=== PATIENT | female | born 1995 | race Two or more races ===

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

== ENCOUNTER → 2017-02-23 | Outpatient (REF) | payer OTHER ==
[2017-02-23 22:25] LABS: CHLAMYDIA DNA AMPLIFICATION POSITIVE (NEGATIVE); GC DNA AMPLIFICATION NEGATIVE (NEGATIVE)
== END ==
LOC: M LAB REF 17:18
DX: N39.0 Urinary tract infection, site not specified (principal)

== ENCOUNTER → 2017-04-19 | Outpatient (REF) | payer OTHER | LOC: M LAB REF 19:19 | DX: A08.4 Viral intestinal infection, unspecified (principal) ==

== ENCOUNTER → 2017-05-09 | Outpatient (CLI) | payer OTHER ==
[2017-05-11 11:46] LABS: HIV 1&2 SCREEN CENTAUR NEGATIVE (NEGATIVE)
== END ==
LOC: M WUC 16:31
DX: Z72.51 High risk heterosexual behavior (principal)
CPT/HCPCS: 36415

== ENCOUNTER 2017-07-12 12:45 | Emergency (ER) | payer OTHER ==
[2017-07-12 14:37] LABS: HEMATOCRIT 41.4 % (36.0-47.0); HEMOGLOBIN 13.8 g/dl (12.0-15.5); MEAN CORPUSCULAR HEMOGLOBIN 29.4 pg (27.0-33.0); MEAN CORPUSCULAR HGB CONC 33.3 g/dl (32.0-36.5); MEAN CORPUSCULAR VOLUME 88.3 fl (80.0-96.0); PLATELET COUNT, AUTOMATED 230 10^3/uL (150-450); RED BLOOD COUNT 4.69 10^6/uL (4.00-5.40); RED CELL DISTRIBUTION WIDTH 12.2 % (11.5-14.5); WHITE BLOOD COUNT 10.9 10^3/uL (4.0-10.0)
[2017-07-12 14:52] LABS: AMPHETAMINES LEVEL URINE NEGATIVE (NEGATIVE); BARBITURATES URINE NEGATIVE (NEGATIVE); BENZODIAZEPINES URINE NEGATIVE (NEGATIVE); CANNABINOIDS URINE POSITIVE (NEGATIVE); COCAINE METABOLITE URINE NEGATIVE (NEGATIVE); CONTROL LINE HCG INT CTR LINE PRESENT; HCG, SERUM QUALITATIVE NEGATIVE (NEGATIVE); METHADONE URINE NEGATIVE (NEGATIVE); OPIATES URINE NEGATIVE (NEGATIVE); PHENCYCLIDINE URINE NEGATIVE (NEGATIVE)
[2017-07-12 15:07] LABS: ALBUMIN 3.8 GM/DL (3.2-5.2); ALBUMIN/GLOBULIN RATIO 0.97 (1.00-1.93); ALKALINE PHOSPHATASE 66 U/L (45-117); ALT/SGPT 18 U/L (12-78); ANION GAP 4 MEQ/L (8-16); AST/SGOT 12 U/L (7-37); BILIRUBIN,DIRECT < 0.1 MG/DL (0.0-0.2); BILIRUBIN,TOTAL 0.3 MG/DL (0.2-1.0); BLOOD UREA NITROGEN 11 MG/DL (7-18); CALCIUM LEVEL 8.8 MG/DL (8.5-10.1); CARBON DIOXIDE LEVEL 29 MEQ/L (21-32); CHLORIDE LEVEL 107 MEQ/L (98-107); CREATININE FOR GFR 0.65 MG/DL (0.55-1.30); GLUCOSE, FASTING 82 MG/DL (70-100); POTASSIUM SERUM 3.9 MEQ/L (3.5-5.1); SALICYLATE LEVEL < 1.7 MG/DL (5.0-30.0); SODIUM LEVEL 140 MEQ/L (136-145); TOTAL PROTEIN 7.7 GM/DL (6.4-8.2)
[2017-07-12 15:09] LABS: ACETAMINOPHEN LEVEL < 2.0 UG/ML (10.0-30.0); ETHYL ALCOHOL (ETHANOL) < 0.003 % (0.000-0.010)
== END 2017-07-12 17:14 | disposition home or self-care (01) ==
LOC: M ED 12:45
DX: F31.9 Bipolar disorder, unspecified (principal); F41.9 Anxiety disorder, unspecified
CPT/HCPCS: 80320

== ENCOUNTER 2017-07-13 12:08 | Emergency (ER) | payer OTHER, MEDICAID | END 2017-07-13 13:19 | disposition home or self-care (01) | LOC: M ED 12:08 | DX: F31.9 Bipolar disorder, unspecified (principal); F33.1 Major depressive disorder, recurrent, moderate; F12.10 Cannabis abuse, uncomplicated; F43.10 Post-traumatic stress disorder, unspecified | CPT/HCPCS: 99283 ==

== ENCOUNTER 2017-08-05 17:48 | Emergency (ER) | payer OTHER ==
[2017-08-05 21:38] LABS: HEMATOCRIT 36.1 % (36.0-47.0); HEMOGLOBIN 12.4 g/dl (12.0-15.5); MEAN CORPUSCULAR HGB CONC 34.3 g/dl (32.0-36.5); MEAN CORPUSCULAR VOLUME 87.4 fl (80.0-96.0); PLATELET COUNT, AUTOMATED 193 10^3/uL (150-450); RED BLOOD COUNT 4.13 10^6/uL (4.00-5.40); RED CELL DISTRIBUTION WIDTH 12.1 % (11.5-14.5); WHITE BLOOD COUNT 13.9 10^3/uL (4.0-10.0)
[2017-08-05 21:40] LABS: ADD MANUAL DIFFER YES; DIFF SLIDE NUMBER 161; POSITIVE DIFF POS FLAG
[2017-08-05 21:46] LABS: AMORPHOUS SEDIMENT RFX SMALL (NEGATIVE); KETONE, URINE AUTO RFX NEGATIVE (NEGATIVE); MUCUS, URINE RFX MODERATE (NEGATIVE); NITRITE, URINE AUTO RFX NEGATIVE (NEGATIVE); RBC, URINE AUTO RFX 0 /HPF (0-3); SPECIFIC GRAVITY UR AUTO RFX 1.025 (1.002-1.035); SQUAM EPITHELIAL CELL UR AURFX 35 /HPF (0-6)
[2017-08-05 21:47] LABS: LEUKOCYTE ESTERASE UR AUTO RFX 2+ (NEGATIVE); WBC, URINE AUTO RFX 146 /HPF (0-3)
[2017-08-05 21:51] LABS: CONTROL LINE HCG INT CTR LINE PRESENT; HCG, SERUM QUALITATIVE NEGATIVE (NEGATIVE)
[2017-08-05 22:02] LABS: ALBUMIN 3.3 GM/DL (3.2-5.2); ALKALINE PHOSPHATASE 66 U/L (45-117); ALT/SGPT 16 U/L (12-78); ANION GAP 8 MEQ/L (8-16); AST/SGOT 11 U/L (7-37); BILIRUBIN,DIRECT < 0.1 MG/DL (0.0-0.2); BILIRUBIN,TOTAL 0.2 MG/DL (0.2-1.0); BLOOD UREA NITROGEN 17 MG/DL (7-18); CALCIUM LEVEL 8.5 MG/DL (8.5-10.1); CARBON DIOXIDE LEVEL 28 MEQ/L (21-32); CHLORIDE LEVEL 106 MEQ/L (98-107); CREATININE FOR GFR 0.65 MG/DL (0.55-1.30); GLUCOSE, FASTING 77 MG/DL (70-100); LIPASE 74 U/L (73-393); POTASSIUM SERUM 3.5 MEQ/L (3.5-5.1); SODIUM LEVEL 142 MEQ/L (136-145); TOTAL PROTEIN 6.6 GM/DL (6.4-8.2)
[2017-08-05 22:13] LABS: ATYPICAL LYMPH 2 % (0-5); EOSINOPHILS 2 % (0-5); LYMPHOCYTES 40 % (16-52); MONOCYTES 2 % (0-8); MYELOCYTES 1 % (0-0); NEUTROPHILS 53 % (35-75); PLATELET ESTIMATE NORMAL (NORMAL)
[2017-08-05] MEDS: ONDANSETRON 4 MG ORAL DISINTEGRATING TAB (Q0162 PER 1MG) PO (22:32)
[2017-08-05] MEDS: metroNIDAZOLE (FLAGYL) 500 MG TAB PO (23:23)
[2017-08-05 23:48] LABS: CHLAMYDIA DNA AMPLIFICATION POSITIVE (NEGATIVE); GC DNA AMPLIFICATION NEGATIVE (NEGATIVE)
[2017-08-06 09:37] LABS: HEPATITIS C VIRUS ABY INDEX 0.1 INDEX (<0.8)
== END 2017-08-05 23:25 | disposition home or self-care (01) ==
LOC: M ED 17:48
DX: N76.0 Acute vaginitis (principal); F31.0 Bipolar disorder, current episode hypomanic
CPT/HCPCS: Q0162

== ENCOUNTER 2017-08-23 10:59 | Inpatient (IN) | payer OTHER ==
[2017-08-23 11:43] LABS: HEMATOCRIT 44.1 % (36.0-47.0); HEMOGLOBIN 14.6 g/dl (12.0-15.5); MEAN CORPUSCULAR HEMOGLOBIN 29.7 pg (27.0-33.0); MEAN CORPUSCULAR HGB CONC 33.1 g/dl (32.0-36.5); MEAN CORPUSCULAR VOLUME 89.6 fl (80.0-96.0); PLATELET COUNT, AUTOMATED 244 10^3/uL (150-450); RED BLOOD COUNT 4.92 10^6/uL (4.00-5.40); RED CELL DISTRIBUTION WIDTH 12.3 % (11.5-14.5); WHITE BLOOD COUNT 7.8 10^3/uL (4.0-10.0)
[2017-08-23 12:17] LABS: CONTROL LINE HCG INT CTR LINE PRESENT; HCG, SERUM QUALITATIVE NEGATIVE (NEGATIVE)
[2017-08-23 12:23] LABS: AMPHETAMINES LEVEL URINE NEGATIVE (NEGATIVE); BARBITURATES URINE NEGATIVE (NEGATIVE); BENZODIAZEPINES URINE NEGATIVE (NEGATIVE); CANNABINOIDS URINE POSITIVE (NEGATIVE); COCAINE METABOLITE URINE NEGATIVE (NEGATIVE); METHADONE URINE NEGATIVE (NEGATIVE); OPIATES URINE NEGATIVE (NEGATIVE); PHENCYCLIDINE URINE NEGATIVE (NEGATIVE)
[2017-08-23 12:31] LABS: ALBUMIN 3.7 GM/DL (3.2-5.2); ALKALINE PHOSPHATASE 67 U/L (45-117); ALT/SGPT 22 U/L (12-78); ANION GAP 9 MEQ/L (8-16); AST/SGOT 11 U/L (7-37); BILIRUBIN,DIRECT < 0.1 MG/DL (0.0-0.2); BILIRUBIN,TOTAL 0.2 MG/DL (0.2-1.0); BLOOD UREA NITROGEN 18 MG/DL (7-18); CALCIUM LEVEL 8.9 MG/DL (8.5-10.1); CARBON DIOXIDE LEVEL 25 MEQ/L (21-32); CHLORIDE LEVEL 108 MEQ/L (98-107); CREATININE FOR GFR 0.89 MG/DL (0.55-1.30); ETHYL ALCOHOL (ETHANOL) < 0.003 % (0.000-0.010); GLUCOSE, FASTING 84 MG/DL (70-100); POTASSIUM SERUM 4.3 MEQ/L (3.5-5.1); SALICYLATE LEVEL < 1.7 MG/DL (5.0-30.0); SODIUM LEVEL 142 MEQ/L (136-145); THYROID STIMULATING HORMONE 0.634 uIU/ML (0.463-3.98); TOTAL PROTEIN 7.8 GM/DL (6.4-8.2)
[2017-08-23] MEDS: LORazepam 2 MG TAB PO (12:32)
[2017-08-23 12:37] LABS: ACETAMINOPHEN LEVEL < 2.0 UG/ML (10.0-30.0)
[2017-08-23] MEDS ORDERED: ACETAMINOPHEN TAB 650MG DOSE (2X325MG) PO (14:30)
[2017-08-23] MEDS ORDERED: traZODone 50 MG TAB PO (14:30)
[2017-08-23] MEDS ORDERED: MOM 30ML SUSPENSION UDC PO (14:30)
[2017-08-23] MEDS ORDERED: MAALOX 30 ML SUSP *UDC PO (14:30)
[2017-08-23] MEDS: BACTRIM 160MG/800MG DS TAB PO (21:36)
[2017-08-23] MEDS: CLINDAMYCIN VAG PV (21:37)
[2017-08-24] MEDS: BACTRIM 160MG/800MG DS TAB PO (09:14)
== END 2017-08-24 12:30 | disposition home or self-care (01) | DRG 755 ==
LOC: M ED 10:59 → M ED INP 14:27 → M PSY 15:25
DX: F43.23 Adjustment disorder with mixed anxiety and depressed mood (principal); F60.3 Borderline personality disorder; F63.9 Impulse disorder, unspecified; Z62.810 Personal history of physical and sexual abuse in childhood; Z62.811 Personal history of psychological abuse in childhood

== ENCOUNTER 2020-03-26 14:09 | Inpatient (IN) | payer MEDICAID, OTHER ==
[~2020-03-26] VITALS: Ht 154.9 cm; Wt 75.7 kg
[~2020-03-26 14:09] MED LIST: BACT800T5 PO; CLIN2CR PV; METR-265 PO; NORG0.25 PO; TRINTAB PO
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
--- OUTSIDE RECORDS SUMMARY | 2020-03-26 15:00 | CCD ---
Author Author [facility] Organization [facility] Address Unknown Phone Unavailable Care Team Providers Care Teacher Physically Impaired Name Role Phone Latasha, Eldad Unavailable Unavailable [...] Unavailable Unavailable Lina Emmanuel MD Unavailable Unavailable LynLina quispe MD Unavailable [...] Lyndaker, Lina Meredith MD Unavailable Unavailable Lyndaker, Lina Meredith MD Unavailable Unavailable Lyndaker, L Masoud MD [...] Unavailable Lyndaker, L Masoud GARCIA Unavailable Unavailable Re-disclosure Warning The records that [...] is protected by Article 27-F of the [facility] Public Health law. If you continue you may have access to information: Regarding HIV / AIDS; Provided by facilities licensed or operated by the [facility] Office of Mental Health; or Provided by the [facility] Office for People With Developmental Disabilities. If such information is present, then the following [facility] mandated warning applies: This information has [...] law may result in a fine or correction sentence or both. A general authorization for the release of medical or other information is NOT sufficient authorization for further disc losure. Allergies and Adverse Reactions Type Description Substance Reaction Status Data Source(s ) Environmental Allergy SEASONAL ALLERGIES SEASONAL ALLERGIES [facility] Family History Family Member Name Family Member Gender Family Member Status Date o f Status Description Data Source(s) Unknown Condition [facility] Unknown Unknown Problem MEDENT ([facility] Encounters Encounter Providers Location Date Indications Data Source(s ) Outpatient Attender: Azam Evans MD 02/20/2020 12:35:0 0 PM EST Z20.2 [facility] Z20.2 Preadmit Attender: Denise Pagan 04/07/2019 10:42:00 AM ES T N91.2 [facility] N91.2 Admission cancelled. Disregard status an d admitted date. Outpatient Attender: Denise PaganReferrer: Masoud Chery 04/07/2019 09:37:00 AM EST - 04/07/2019 11:45:00 AM EST [facility] Outpatient Attender: NAZIA PITT 03/28/2019 08:01:37 P M EST [facility] Medications Medication Brand Name Start Date Product [...] 04/07/2019 11:09:28 AM EST 150 MG completed [facility] venlafaxine 37.5 MG Oral Tablet Venlafaxine Venlafaxine 04/07/2019 10:40:16 AM EST 37.5 MG completed [facility] Insurance Providers Payer name Policy type / Coverage type Policy ID Covered libertarian ID Covered libertarian's relationship to tripathi Policy Tripathi Plan Information TITA [id number] SP [id number] [facility] [id number] SP [id number] Managed Care - [facility] Community Plan P [id number] S [id number] Medicaid S [id number] S [id number] Managed Care - Community Plan [employer] P [id number] S [id number] Managed Care - Community Plan United [employer] P [id number] S [id number] [facility] COMMUNITY PLAN MCDO [id number] SP [id number] [facility] [id number] SP [id number] [facility] Maintenance Organization (HMO) [id number] Self [id number] [employer] [facility] (HMO) [id number] Self [id number] United CR/[facility] (HMO) [id number] Self [id number] [employer] [facility] (HMO) [id number] Self [id number] [employer] [facility] (HMO) [id number] Self [id number] [employer] [facility] (HMO) [id number] Self [id number] [facility] COMMUNITY PLAN MCDO [id number] SP [id number] [place] [facility]/Community [facility] [employer] [facility] (HMO) [id number] Self [id number] Results ID Date Data Source [id number] 02/20/2020 01:40:00 PM EST [facility] @02/20/20 1314: UA W/ MICRO added. RFLXG = UMIC CIF.Method of Collection:: Voided @02/20/20 1341: Urine culture added. RFL XG = CULT.ADD.@02/22/20 1122: Urine ID Charge added. RFLXG = CHGURID. Source Of Specimen: URINE @02/20/20 1314: UA W/ MICRO added. RFLXG = UMIC CIF.Method of Collection:: Voided Name Value Range Interpretation Code Description Data Fernanda rce(s) Supporting Document(s) Color of Urine [facility] Appearance of Urine CLEAR Abnormal (applies to non-nu meric results) [facility] pH of Urine by Test strip 5.0 5-8 [facility] Specific gravity of Urine by Refractometry 1.029 1.005-1.030 [facility] Leukocyte esterase [Presence] in Urine by Test strip NEGATIVE Abnormal (applies to non-numeric results) [facility]!!!!A Culture has been added to this specimen per established criteria Nitrite [Presence] in Urine by Test strip NEGATIVE Above high normal [facility] @DO MICRO!!!!A Culture has been added to this specimen per established criteria Protein [Presence] in Urine by Test strip NEGATIVE [facility] Glucose [Mass/volume] in Urine by Automated test strip NEGATIVE NEG ATIVE [facility] Ketones [Presence] in Urine by Test strip NEGATIVE [facility] Urobilinogen [Presence] in Urine 0.2-1 EU/dl [facility] Bilirubin.total [Presence] in Urine by Automated test strip NEGATIVE [facility] Erythrocytes [#/volume] in Urine by Test strip SMALL NEGATIV E Above high normal [facility] @DO MICRO!!!! URINE MICROSCOPIC? (CIF) Microscopic Added [facility] ID Date Data Source [id number] 04/07/2019 10:02:00 AM EST [facility] Patient Name: KUNAL NIEVES : 1995 Sex: F Pt Unit #: [id number] Location:[facility] Provider: Visit Date/Time: 04/07/19 Primary Insurance: BC/BS OF [place] Secondary Insurance: Self Pay Intake Vital Signs [...] office today [facility] [employer] Combo Test Lot# [id number] Exp 12/05/20 [employer] which was NEGATIVE. The patient moved here from [place] to be closer to family for their support but gets no support from them. She is engaged and he is supportive. The patient is extremely distraught and EPDA score is 22. Field Sales Agent Required: No Is patient in pain?: Yes [...] and colleagues, with an educational david from [employer]. 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: No water heater temp set < [...] - Post-traumatic stress disorder, unspecified SNOMED Code(s): 82350140 Category: Medical (3) Bipolar 1 disorder: Status: Acute Code(s): F31.9 - Bipolar disorder, unspecified SNOMED Code(s): 221082609 Category: Medical (4) Anxiety: Status: Acute Code(s): F41.9 - Anxiety disorder, unspecified SNOMED Code(s): 98603226 Category: Medical (5) Depression: Status: Acute Code(s): F32.9 - Major depressive disorder, single episode, unspecified SNOMED Code(s): 84234796 Category: Medical Orders Other Medications: New: venlafaxine [...] by Denise Pagan MD> Date/Time Signed: 04/07/19 1087 Name Value Range Interpretation Code Description Data Fernanda rce(s) Supporting Document(s) Procedure Social History Code Duration Value Status Description Data Source(s ) 04/07/2019 10:36:26 AM EST Never smoker completed Never s [facility] Smoking 04/07/2019 10:36:00 AM EST Never smoker completed Never s [facility]
[2020-03-26 15:59] LABS: HEMATOCRIT 42.2 % (36.0-47.0); HEMOGLOBIN 13.6 g/dl (12.0-15.5); MEAN CORPUSCULAR HEMOGLOBIN 28.3 pg (27.0-33.0); MEAN CORPUSCULAR HGB CONC 32.2 g/dl (32.0-36.5); MEAN CORPUSCULAR VOLUME 87.7 fl (80.0-96.0); PLATELET COUNT, AUTOMATED 250 10^3/uL (150-450); RED BLOOD COUNT 4.81 10^6/uL (4.00-5.40); WHITE BLOOD COUNT 11.2 10^3/uL (4.0-10.0)
[2020-03-26 16:33] LABS: HCG, SERUM QUALITATIVE NEGATIVE (NEGATIVE)
[2020-03-26 16:35] LABS: ACETAMINOPHEN LEVEL < 2.0 UG/ML (10.0-30.0); ALBUMIN 3.6 GM/DL (3.2-5.2); ALT/SGPT 22 U/L (12-78); BILIRUBIN,DIRECT < 0.1 MG/DL (0.0-0.2); BILIRUBIN,TOTAL 0.3 MG/DL (0.2-1.0); BLOOD UREA NITROGEN 16 MG/DL (7-18); CARBON DIOXIDE LEVEL 28 MEQ/L (21-32); CHLORIDE LEVEL 104 MEQ/L (98-107); CREATININE FOR GFR 0.65 MG/DL (0.55-1.30); ETHYL ALCOHOL (ETHANOL) 0.007 % (0.000-0.010); GLOMERULAR FILTRATION RATE > 60.0 (>60); GLUCOSE, FASTING 85 MG/DL (70-100); POTASSIUM SERUM 3.7 MEQ/L (3.5-5.1); SALICYLATE LEVEL < 1.7 MG/DL (5.0-30.0); SODIUM LEVEL 140 MEQ/L (136-145); TOTAL PROTEIN 7.5 GM/DL (6.4-8.2)
[2020-03-26 18:19] LABS: AMPHETAMINES LEVEL URINE NEGATIVE (NEGATIVE); BARBITURATES URINE NEGATIVE (NEGATIVE); BENZODIAZEPINES URINE NEGATIVE (NEGATIVE); CANNABINOIDS URINE POSITIVE (NEGATIVE); COCAINE METABOLITE URINE NEGATIVE (NEGATIVE); METHADONE URINE NEGATIVE (NEGATIVE); OPIATES URINE NEGATIVE (NEGATIVE); PHENCYCLIDINE URINE NEGATIVE (NEGATIVE)
[2020-03-26] MEDS ORDERED: MAALOX 30 ML SUSP *UDC PO PRN (20:00)
[2020-03-26] MEDS ORDERED: MOM 30ML SUSPENSION UDC PO PRN (20:00)
[2020-03-26] MEDS ORDERED: ACETAMINOPHEN TAB 650MG DOSE (2X325MG) PO PRN (20:00)
[2020-03-26] MEDS ORDERED: ACETAMINOPHEN TAB 650MG DOSE (2X325MG) PO ONE (20:00)
--- OUTSIDE RECORDS SUMMARY | 2020-03-26 20:16 | CCD ---
Author Author [facility] Organization [facility] Address Unknown Phone Unavailable Care Team Providers Care Patient Services Assistant Name Role Phone Latasha, Eldad Unavailable Unavailable [...] Unavailable Unavailable Lina Emmanuel MD Unavailable Unavailable Lnia Emmanuel MD Unavailable Unavailable Lina Emmanuel MD [...] Unavailable LyndaLina lucero MD Unavailable Unavailable LyndaLina ulcero MD Unavailable Unavailable LynLina quispe MD Unavailable [...] is protected by Article 27-F of the [facility] Public Health law. If you continue you may have access to information: Regarding HIV / AIDS; Provided by facilities licensed or operated by the [facility] Office of Mental Health; or Provided by the [facility] Office for People With Developmental Disabilities. If such information is present, then the following [facility] mandated warning applies: This information has been [...] law may result in a fine or halfway sentence or both. A general authorization for the release of medical or other information is NOT sufficient authorization for further disc losure. Allergies and Adverse Reactions Type Description Substance Reaction Status Data Source(s ) Environmental Allergy SEASONAL ALLERGIES SEASONAL ALLERGIES [facility] Family History Family Member Name Family Member Gender Family Member Status Date o f Status Description Data Source(s) Unknown Condition [facility] Unknown Unknown Problem [facility]ENT ([facility]) Encounters Encounter Providers Location Date Indications Data Source(s ) Outpatient Attender: Azam Evans MD 02/20/2020 12:35:0 0 PM EST Z20.2 [facility] Z20.2 Preadmit Attender: Denise Pagan 04/07/2019 10:42:00 AM ES T N91.2 [facility] N91.2 Admission cancelled. Disregard status an d admitted date. Outpatient Attender: Denise PaganReferrer: Masoud Chery 04/07/2019 09:37:00 AM EST - 04/07/2019 11:45:00 AM EST [facility] Outpatient Attender: NAZIA PITT 03/28/2019 08:01:37 P M EST [facility] Medications Medication Brand Name Start [...] 04/07/2019 11:09:28 AM EST 150 MG completed [facility] venlafaxine 37.5 MG Oral Tablet Venlafaxine Venlafaxine 04/07/2019 10:40:16 AM EST 37.5 MG completed [facility] Insurance Providers Payer name Policy type / Coverage type Policy ID Covered constitution party ID Covered constitution party's relationship to tripathi Policy Tripathi Plan Information TITA [id number] SP [id number] 400 TITA [id number] SP [id number] [facility] [id number] SP [id number] Managed Care - [facility] Community Plan P [id number] S [id number] Medicaid S [id number] S [id number] Managed Care - Community Plan United [employer] P [id number] S [id number] Managed Care - Community Plan [employer] P [id number] S [id number] UN COMMUNITY PLAN MCDO [id number] SP [id number] [facility] [id number] SP [id number] [employer] [facility] [employer] (HMO) [id number] Self [id number] [employer] [facility] (HMO) [id number] Self [id number] [employer] [facility] (HMO) [id number] Self [id number] [employer] [facility] [employer] (HMO) [id number] Self [id number] [employer] [facility] [employer] (HMO) [id number] Self [id number] [employer] [facility] (HMO) [id number] Self [id number] UN COMMUNITY PLAN MCDHMO [id number] SP [id number] [place] [facility] [employer] Organization (HMO) [id number] Self [id number] Results ID Date Data Source [id number] 02/20/2020 01:40:00 PM EST [facility] @02/20/20 1314: UA W/ MICRO added. RFLXG = UMIC CIF.Method of Collection:: Voided @02/20/20 1341: Urine culture added. RFL XG = CULT.ADD.@02/22/20 1122: Urine ID Charge added. RFLXG = CHGURID. Source Of Specimen: URINE @02/20/20 1314: UA W/ MICRO added. RFLXG = UMIC CIF.Method of Collection:: Voided Name Value Range Interpretation Code Description Data Fernanda rce(s) Supporting Document(s) Color of Urine [facility] Appearance of Urine CLEAR Abnormal (applies to non-nu meric results) [facility] pH of Urine by Test strip 5.0 5-8 [facility] Specific gravity of Urine by Refractometry 1.029 1.005-1.030 [facility] Leukocyte esterase [Presence] in Urine by Test strip NEGATIVE Abnormal (applies to non-numeric results) [facility]A Culture has been added to this specimen per established criteria Nitrite [Presence] in Urine by Test strip NEGATIVE Above high normal [facility] @DO MICRO!!!!A Culture has been added to this specimen per established criteria Protein [Presence] in Urine by Test strip NEGATIVE [facility] Glucose [Mass/volume] in Urine by Automated test strip NEGATIVE NEG ATIVE [facility] Ketones [Presence] in Urine by Test strip NEGATIVE [facility] Urobilinogen [Presence] in Urine 0.2-1 EU/dl [facility] Bilirubin.total [Presence] in Urine by Automated test strip NEGATIVE [facility] Erythrocytes [#/volume] in Urine by Test strip SMALL NEGATIV E Above high normal [facility] @DO MICRO!!!! URINE MICROSCOPIC? (CIF) Microscopic Added [facility] ID Date Data Source [id number] 04/07/2019 10:02:00 AM EST [facility] Patient Name: KUNAL NIEVES : 1995 Sex: F Pt Unit #: [id number] Location:[facility] Provider: Visit Date/Time: 04/07/19 Primary Insurance: BC/BS OF [place] Secondary Insurance: Self Pay Intake Vital Signs [...] office today [employer] [employer] Test Lot# [id number] Exp 12/05/20 [employer] which was NEGATIVE. The patient moved here from [place] to be closer to family for their support but gets no support from them. She is engaged and he is supportive. The patient is extremely distraught and EPDA score is 22. Client Services Account Manager Required: No Is patient in pain?: Yes [...] and colleagues, with an educational david from [employer]. 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: No water heater temp set < [...] - Post-traumatic stress disorder, unspecified SNOMED Code(s): 24984846 Category: Medical (3) Bipolar 1 disorder: Status: Acute Code(s): F31.9 - Bipolar disorder, unspecified SNOMED Code(s): 649799871 Category: Medical (4) Anxiety: Status: Acute Code(s): F41.9 - Anxiety disorder, unspecified SNOMED Code(s): 03741858 Category: Medical (5) Depression: Status: Acute Code(s): F32.9 - Major depressive disorder, single episode, unspecified SNOMED Code(s): 89566925 Category: Medical Orders Other Medications: New: venlafaxine [...] by Denise Pagan MD> Date/Time Signed: 04/07/19 6791 Name Value Range Interpretation Code Description Data Fernanda rce(s) Supporting Document(s) Procedure Social History Code Duration Value Status Description Data Source(s ) 04/07/2019 10:36:26 AM EST Never smoker completed Never s [facility] Smoking 04/07/2019 10:36:00 AM EST Never smoker completed Never s [facility]
[2020-03-27 00:08] VITALS: BP 131/74
[2020-03-27] MEDS: traZODone 50 MG TAB PO PRN ×2 (00:35→20:21)
[2020-03-27 07:07] VITALS: BP 142/78
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
[2020-03-27 16:07] VITALS: BP 135/82
[2020-03-27] MEDS: hydrOXYzine 10 MG TAB PO PRN (20:21)
[2020-03-28 06:19] VITALS: BP 115/64
--- NOTE | 2020-03-28 09:57 | MHIPNPDOC ---
[facility] Progress Note Progress Note DATE OF SERVICE: 03/28/20 HISTORY: 25-year-old female with suicidal ideation. VITAL SIGNS: See below. NEW TEST RESULTS: Note Result. CURRENT MEDICATIONS: See below. MENTAL STATUS EXAMINATION: Patient is a 25-year old female, who is, not demonstrating any psychotic symptoms. Speech: Is. Normal. Language skills are no abnormality. Thought processes including: Wanting to see daughter and not in anyway discussing what brought her in the hospital. Thought content: Wanting to see daughter. Abstract reasoning, and computation: Poor. Abstraction. Description of associations:. No loose associations. Description of abnormal or psychotic thoughts:, No psychotic thoughts. Judgment:, Poor. Insight:, Poor. Orientation: 3. Recent and remote memory: Intact. Attention span and concentration: Intact. Language:. No abnormality. Fund of knowledge: Full. Mood: Euthymic. Affect:, Congruent. DIAGNOSES: 1., Generalized anxiety disorder. 2., Family stressors. 3., Situational depression. ASSESSMENT:. Patient has shown no effort in attempting to review evaluate or reflect on the reason she was admitted MANAGEMENT PLAN:, Will discharge to outpatient with a prognosis that patient at some point will be readmitted. TIME SPENT: 35 minutes. Vital Signs Vital Signs Date Time Temp Pulse Resp B/P (MAP) Pulse Ox O2 Delivery O2 Flow Rate FiO2 03/28/20 06:19 98.1 82 18 115/64 (81) 97 Room Air Current Medications Current Medications Medications (Trade) Dose Ordered Sig/Lukasz Route PRN Reason Start Time Stop Time Status Last Admin Dose Admin Acetaminophen (Tylenol Tab) 650 mg Q6HP PRN PO HEADACHE or DISCOMFORT 03/26/20 20:00 Al Hydrox/Mg Hydrox/Simethicone (Mylanta) 30 ml Q4HP PRN PO HEARTBURN/INDIGESTION 03/26/20 20:00 Home Med (Med Rec Complete!) ASDIRECTED XX 03/26/20 17:45 03/26/20 17:40 DC Hydroxyzine HCl (Atarax) 10 mg BIDP PRN PO ANXIETY/AGITATION 03/27/20 11:15 03/27/20 20:21 Magnesium Hydroxide (Milk Of Magnesia) 30 ml DAILYPRN PRN PO CONSTIPATION 03/26/20 20:00 Trazodone HCl (Desyrel) 50 mg QHSP PRN PO INSOMNIA 03/26/20 20:00 03/27/20 20:21 Allergies Coded Allergies: No Known Allergies (Unverified , 10/18/16) PIPPA HOOPER MD Mar 28, 2020 09:57
--- NOTE | 2020-03-28 11:01 | HPE ---
[facility] HISTORY AND PHYSICAL DATE OF ADMISSION: 03/26/2020 CHIEF COMPLAINT: Routine medical examination. HISTORY OF PRESENTING ILLNESS: This is a 25-year-old female with past medical history significant for depression, bacterial vaginosis, UTI, marijuana use, who presents to [facility] with severe depression requiring Inpatient Mental Health Unit admission. The patient denies any medical complaints. She has had no fever or chills, chest pain or pressure or tightness, shortness of breath, palpations, lightheadedness, dizziness, nausea, vomiting, diarrhea, abdominal pain, dysuria, urgency, frequency, vaginal discharge, weight gain or weight loss, changes in appetite or sleep or weight. The patient denies any odynophagia, dysphagia, sore throat, ear discharge, tinnitus, or vertigo. She denies any polyphagia, polydipsia, polyuria. No paresthesias or bilateral upper or lower extremity weakness. PAST MEDICAL HISTORY: 1. Bacterial vaginosis. 2. Urinary tract infection. 3. Depression. PAST SURGICAL HISTORY: None. SOCIAL HISTORY: Single. The patient uses marijuana occasionally. No alcohol abuse. FAMILY HISTORY: Mother and father are alive and healthy, unknown medical problems. Mother is alive at age 45. Father is age 65. REVIEW OF SYSTEMS: The 12-point system is otherwise negative aside from positive findings on history of present illness. PHYSICAL EXAMINATION: VITAL SIGNS: Temperature 98.4, pulse 79, respiratory 14, blood pressure 142/78, and 97% on room air. GENERAL: Awake, alert, and oriented x3, answering questions appropriately. NECK: No JVD, thyromegaly, cervical lymphadenopathy. HEENT: Moist mucous membranes. No stridor. LUNGS: Clear to auscultation, no wheezing, rales, or rhonchi. HEART: S1, S2, sinus rhythm. ABDOMEN: Soft, nontender, nondistended. Positive bowel sounds. EXTREMITIES: No cyanosis, clubbing, or pitting edema. LABORATORY DATA: The 03/26/2020 CBC and metabolic panel have been reviewed. ASSESSMENT AND PLAN: This is a 25-year-old with a history of UTI, bacterial vaginosis, depression, admitted to the Inpatient Mental Health Unit due to depression with no other acute medical issues and normal blood tests. IMPRESSION: Depression, managed by psychiatrist. Refer to psychiatrist for discharge planning. The patient has no other acute medical issues. Hospitalist Services will be signing off. Please reconsult for any acute medical issues that should arise.
[2020-03-28 16:06] VITALS: BP 137/82
[2020-03-28] MEDS: traZODone 50 MG TAB PO PRN (20:24)
[2020-03-28] MEDS: hydrOXYzine 10 MG TAB PO PRN (20:24)
[2020-03-29 06:49] VITALS: BP 125/57
--- NOTE | 2020-03-29 08:52 | MHDSPDOC ---
[facility] Discharge Summary Discharge Summary DATE OF ADMISSION: Mar 26, 2020 at 19:55 DATE OF DISCHARGE: DISCHARGE DIAGNOSES: 1. Adjustment disorder with anxiety. 2.. Family stressors. REASON FOR ADMISSION:. Suicidal statements during family conflict CONSULTANTS INVOLVED: None TREATMENT AND PROGRESS ON THE UNIT : Patient demonstrated no significant insight nor did she attempt to do any thinking or discussion concerning her anxiety. She spent most of the time, just making requests HOSPITAL COURSE: As above DISCHARGE ASSESSMENT: Adjustment disorder with anxiety, poor boyfriend choices and family stressors with regards to her siblings who are both intellectually limited MENTAL STATUS EXAMINATION ON DISCHARGE: Patient is a 25-year old female, who is, not demonstrating psychotic symptoms and no longer suicidal. Speech is normal. Language skills are. Intact. Thought processes including: Focused on her child and going home. Thought content: As above. Abstract reasoning, and computation: Limited. Description of associations:. No loose associations. Description of abnormal or psychotic thoughts:, No psychotic thoughts. Judgment:, Poor. Insight: Little. Orientation to 3. Recent and remote memory: Intact. Attention span and concentration: Poor. Language:. No disturbance. Fund of knowledge: Full. Mood: Good. Affect: Euthymic and congruent. MEDICATIONS ON DISCHARGE: -None PLAN/FOLLOWUP ARRANGEMENTS: As per case planner. Recommend individual counseling. The amount of time spent in the coordination of care for this patient was approximately 35 minutes. Vital Signs/I&Os Vital Signs Date Time Temp Pulse Resp B/P (MAP) Pulse Ox O2 Delivery O2 Flow Rate FiO2 03/29/20 06:49 97.9 106 14 125/57 (79) 98 Room Air Laboratory Data Microbiology Microbiology 03/26/20 Respiratory Virus Panel (PCR) ([facility]) - Final, Complete Medications No Active Prescriptions or Reported Meds Allergies Coded Allergies: No Known Allergies (Unverified , 10/18/16) PIPPA HOOPER MD Mar 29, 2020 08:52
== END 2020-03-29 15:04 | disposition home or self-care (01) | DRG 755 ==
LOC: M ED 14:09 → M ED INP 19:55 → M PSY 23:32
PROVIDERS: ADMIT Psychiatry & Neurology Child & Adolescent Psychiatry; ATTEND Psychiatry & Neurology Child & Adolescent Psychiatry
DX: F43.22 Adjustment disorder with anxiety (principal); R45.851 Suicidal ideations; Z63.8 Other specified problems related to primary support group